=== PATIENT | male | born 1935 | race Caucasian/White ===

== ENCOUNTER 2022-11-26 14:00 | Outpatient (CLI) | payer OTHER, SELFPAY ==
[2022-11-26 14:42] LABS: Hemoglobin 12.6 g/dL (14.0-18.0); Mean Corpuscular HGB Conc 32.3 g/dl (32-36); Mean Corpuscular Volume 105.1 fl (80-100); Mean Platelet Volume 11.3 fl (7.4-10.4); Platelet Count Result 281 k/mm3 (150-375); Red Blood Count 3.71 M/mm3 (4.6-6.20); Red Cell Distribution Width 17.4 % (11.5-14.5); White Blood Count 5.7 K/mm3 (4.5-10.0)
[2022-11-26 14:53] LABS: Alanine Aminotransferase 57 U/L (6-50); Alkaline Phosphatase 250 U/L (38-126); Aspartate Amino Transferase 31 U/L (17-59); Bilirubin,Total 0.6 mg/dL (0.2-1.3)
== END 2022-11-26 14:01 | disposition home or self-care (01) ==
PROVIDERS: Visit Provider Nurse Practitioner
DX: R79.89 Other specified abnormal findings of blood chemistry (principal); R07.89 Other chest pain; Z90.49 Acquired absence of other specified parts of digestive tract; K21.9 Gastro-esophageal reflux disease without esophagitis
CPT/HCPCS: 36415; 80076; 85027

== ENCOUNTER 2023-05-03 10:09 | Outpatient (CLI) | payer OTHER, SELFPAY ==
[2023-05-03 11:24] LABS: Toxigenic C. Diff NEGATIVE (NEGATIVE)
== END 2023-05-03 10:10 | disposition home or self-care (01) ==
LOC: ANHLAB 10:11
PROVIDERS: PCP Family Medicine; Visit Provider Internal Medicine Gastroenterology
DX: R19.7 Diarrhea, unspecified (principal)
CPT/HCPCS: 87045; 87427; 87493; 89055

== ENCOUNTER 2023-05-13 01:53 | Day surgery (SDC) | payer OTHER, SELFPAY ==
[2023-05-13 09:47] VITALS: BP 114/71; PULSE 73; RESP 18; TEMP 36.2; O2SAT 97; BMI 26.7
[2023-05-13] MEDS: LACTATED RINGERS 1,000 ML 150 ML IV CONT (10:00)
--- NOTE | 2023-05-13 10:05 | WPDANESEPPF ---
Anes - Initial Pre Proc Eval Procedure: Operation Date: 05/13/23 10:30 Proposed Procedures p Esophagogastroduodenoscopy & Screening Colonoscopy - Phu Knowles MD Date/Time: 05/13/23 10:05 Surgeon: Phu Knowles MD Pre Op Diagnosis: epigastric pain and other chest pain,neoplasm Patient Data Age: 87 Gender: M Height: 1.7 m Weight: 77.4 kg Last Vital Signs Temp 97.2 F L 05/13/23 09:47 Pulse 73 05/13/23 09:47 Resp 18 05/13/23 09:47 BP 114/71 05/13/23 09:47 Pulse Ox 97 05/13/23 09:47 O2 Del Method Room Air 05/13/23 09:47 Allergies Allergy/AdvReac Type Severity Reaction Status Date / Time sulfamethoxazole Allergy Mild Rash Verified 05/13/23 09:40 trimethoprim Allergy Unknown Unknown Verified 05/13/23 09:40 niacin Allergy FELT FLUSH Verified 05/13/23 09:40 Sulfa (Sulfonamide Allergy Rash Verified 05/13/23 09:40 Antibiotics) Home Medications Medication Instructions Recorded Confirmed Type amiodarone 200 mg tablet 200 mg PO DAILY 11/23/22 05/13/23 History ascorbic acid (vitamin C) 1,000 mg 1,000 mg PO DAILY 11/23/22 05/13/23 History tablet,extended release aspirin 81 mg tablet,delayed 81 mg PO DAILY 11/23/22 05/13/23 History release calcium carbonate 500 mg calcium 500 mg PO DAILY 11/23/22 05/13/23 History (1,250 mg) chewable tablet cholecalciferol (vitamin D3) 25 25 mcg PO DAILY 11/23/22 05/13/23 History mcg (1,000 unit) capsule ezetimibe 10 mg tablet 5 mg PO 3XW 11/23/22 05/13/23 History famotidine 20 mg tablet 20 mg PO DAILY 11/23/22 05/13/23 History fluticasone furoate 27.5 1 spray intranasal DAILY 11/23/22 05/13/23 History mcg/actuation nasal spray,suspension gabapentin 300 mg capsule 300 mg PO 2XW 11/23/22 05/13/23 History hydroxyurea 500 mg capsule 500 mg PO 5XW 11/23/22 05/13/23 History loratadine 10 mg tablet 10 mg PO DAILY 11/23/22 05/13/23 History nitroglycerin 0.4 mg sublingual 0.4 mg sublingual Q5M PRN Chest 11/23/22 05/13/23 History tablet Pain pyridoxine (vitamin B6) 500 mg 500 mg PO DAILY 11/23/22 05/13/23 History tablet terazosin 2 mg capsule 2 mg PO DAILY 11/23/22 05/13/23 History furosemide 20 mg tablet 20 mg PO DAILY 05/05/23 05/13/23 History isosorbide mononitrate 30 mg 45 mg PO DAILY 05/05/23 05/13/23 History tablet,extended release 24 hr spironolactone 25 mg tablet 12.5 mg PO DAILY 05/05/23 05/13/23 History Patient hx anesthesia problems: none Family hx anesthesia problems: none Results Review: All pre-operative results and documents have been reviewed as part of the pre-operative evaluation. 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 Atrial fibrillation Atypical chest pain CAD (coronary artery disease) CKD (chronic kidney disease) CKD (chronic kidney disease) stage 3, GFR 30-59 ml/min Elevated LFTs Encounter for hepatitis C screening test for low risk patient GERD (gastroesophageal reflux disease) Pacemaker Surgical History Surgical History S/P cholecystectomy Social History Social History (Updated 03/31/23 @ 13:34 by Roseanne Zavaleta CMA) Smoking status: Smoker, status unknown Alcohol intake: never Substance use: never Anes - Eval Final PreProcedure Day of Procedure 05/13/23 10:05 Patient weight: normal Heart: regular rate and rhythm Lungs: clear to auscultation Airway: Mallampati scale class II Neurological: alert and oriented Last oral intake: >/= 8 hours ASA classification: III Emergent: no Anesthetic plan: proceed Anesthesia type and monitoring: general GIVS and standard monitoring Results Review: All pre-operative results and documents have been reviewed as part of the pre-operative evaluation. Infor
--- NOTE | 2023-05-13 10:14 | PM.HPGS ---
History of Present Illness History of Present Illness Consent: Risks, benefits, and alternatives have been discussed and questions answered. Patient agrees to proceed with procedure. Chief complaint: epigastric pain and other chest pain,neoplasm Narrative: Noe Roa is a 87 year old male Presents for both colonoscopy and EGD. Patient has episodes of pain he describes in the epigastric area sometimes in the chest. Not related to diet. He states sometimes pain is relieved with nitroglycerin. Additionally has rather vague left lower quadrant abdominal pain. Not particularly related to bowel habits. Patient denies diarrhea. He has had no bleeding. Patient apparently has had imaging studies in the past the also moved diverticulosis. Patient also may have a small inguinal hernia or a small umbilical hernia. It is uncertain if these are clinically evident. Patient is followed by Cardiology. GI endoscopy has been requested to evaluate for possible GI etiology to discomfort. Review of Systems Review of Systems: Review of systems noncontributory. 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 Atrial fibrillation Atypical chest pain CAD (coronary artery disease) CKD (chronic kidney disease) CKD (chronic kidney disease) stage 3, GFR 30-59 ml/min Elevated LFTs Encounter for hepatitis C screening test for low risk patient GERD (gastroesophageal reflux disease) Pacemaker Surgical History Surgical History S/P cholecystectomy Social History Social History (Updated 03/31/23 @ 13:34 by Roseanne Zavaleta CMA) Smoking status: Smoker, status unknown Alcohol intake: never Substance use: never Meds Home Medications and Allergies Home Medications Medication Instructions Recorded Confirmed Type amiodarone 200 mg tablet 200 mg PO DAILY 11/23/22 05/13/23 History ascorbic acid (vitamin C) 1,000 mg 1,000 mg PO DAILY 11/23/22 05/13/23 History tablet,extended release aspirin 81 mg tablet,delayed 81 mg PO DAILY 11/23/22 05/13/23 History release calcium carbonate 500 mg calcium 500 mg PO DAILY 11/23/22 05/13/23 History (1,250 mg) chewable tablet cholecalciferol (vitamin D3) 25 25 mcg PO DAILY 11/23/22 05/13/23 History mcg (1,000 unit) capsule ezetimibe 10 mg tablet 5 mg PO 3XW 11/23/22 05/13/23 History famotidine 20 mg tablet 20 mg PO DAILY 11/23/22 05/13/23 History fluticasone furoate 27.5 1 spray intranasal DAILY 11/23/22 05/13/23 History mcg/actuation nasal spray,suspension gabapentin 300 mg capsule 300 mg PO 2XW 11/23/22 05/13/23 History hydroxyurea 500 mg capsule 500 mg PO 5XW 11/23/22 05/13/23 History loratadine 10 mg tablet 10 mg PO DAILY 11/23/22 05/13/23 History nitroglycerin 0.4 mg sublingual 0.4 mg sublingual Q5M PRN Chest 11/23/22 05/13/23 History tablet Pain pyridoxine (vitamin B6) 500 mg 500 mg PO DAILY 11/23/22 05/13/23 History tablet terazosin 2 mg capsule 2 mg PO DAILY 11/23/22 05/13/23 History furosemide 20 mg tablet 20 mg PO DAILY 05/05/23 05/13/23 History isosorbide mononitrate 30 mg 45 mg PO DAILY 05/05/23 05/13/23 History tablet,extended release 24 hr spironolactone 25 mg tablet 12.5 mg PO DAILY 05/05/23 05/13/23 History Allergies Allergy/AdvReac Type Severity Reaction Status Date / Time sulfamethoxazole Allergy Mild Rash Verified 05/13/23 09:40 trimethoprim Allergy Unknown Unknown Verified 05/13/23 09:40 niacin Allergy FELT FLUSH Verified 05/13/23 09:40 Sulfa (Sulfonamide Allergy Rash Verified 05/13/23 09:40 Antibiotics) Vital Signs Vital Signs - 24 hr 05/13/23 09:47 Temperature 97.2 F L Pulse Rate 73 Respiratory Rate 18 Blood Pressure 114/71 Pulse Oximetry 97 Oxyge
[2023-05-13] MEDS: SIMETHICONE ORAL SUSPENSION 20 MG/0.3 ML 30 ML BOTTLE 0.6 ML IRRIGATION (10:37)
--- NOTE | 2023-05-13 10:38 | SUR.OPER ---
EGD ended at 1032. Colonoscopy ended at 1038.
[2023-05-13 10:53] VITALS: BP 94/60; PULSE 61; RESP 15; O2SAT 95
[2023-05-13 11:03] VITALS: BP 128/80; PULSE 71; RESP 20; O2SAT 95
[2023-05-13 11:13] VITALS: BP 148/78; PULSE 62; RESP 16; O2SAT 98
== END 2023-05-13 11:28 | disposition home or self-care (01) ==
PROVIDERS: PCP Family Medicine; Visit Provider Internal Medicine Gastroenterology
PROC: 0DJ08ZZ Inspection of Upper Intestinal Tract, Via Natural or Artificial Opening Endoscopic (ICD-10-PCS; CPT 43235; principal; 2023-05-13 10:30)
DX: R10.32 Left lower quadrant pain (principal); D12.3 Benign neoplasm of transverse colon; K63.5 Polyp of colon; K57.30 Diverticulosis of large intestine without perforation or abscess without bleeding; K64.8 Other hemorrhoids; R10.84 Generalized abdominal pain; I25.10 Atherosclerotic heart disease of native coronary artery without angina pectoris; N18.30 Chronic kidney disease, stage 3 unspecified; K21.9 Gastro-esophageal reflux disease without esophagitis; Z95.810 Presence of automatic (implantable) cardiac defibrillator; Z79.82 Long term (current) use of aspirin; Z79.51 Long term (current) use of inhaled steroids
CPT/HCPCS: 43239; 87081; 88305; J2001; J2704; J7120